=== PATIENT | female | born 1945 | race Caucasian/White ===

== ENCOUNTER 2016-11-16 15:55 | Emergency (ER) | payer OTHER ==
[2016-11-16 16:11] VITALS: BP 144/91
[2016-11-16] MEDS ORDERED: Lidocaine 2% PF * 5 ML VIAL ONE (16:21)
--- NOTE | 2016-11-17 00:16 | UC ---
Elian Carlisle Erika, scribed for Jen Hernandez MD on 11/16/16 at 1622 . Laceration HPI - HPI Summary HPI Summary: Patient is a 71-year-old female presenting to [facility] with a CC of a laceration to the left index finger at around 15:15 today. Pt reports that she was slicing bread when her hand slipped, and she sliced her finger at an angle. Pt reports her drove her here today. She reports her tetanus vaccine is UTD. Pt takes propranolol for atrial flutter, and medication for hypothyroidism. PSHx melanoma removal in 1990. - History Of Current Complaint Chief Complaint: UCLaceration Stated Complaint: FINGER LACERACTION Time Seen by Provider: 11/16/16 16:15 Hx Obtained From: Patient Laceration Location: Finger - left index Mechanism Of Injury: Sharp Trauma Onset/Duration: Sudden Onset, Lasting Hours - about 1 hour, Still Present Severity: Moderate Pain Intensity: 0 Pain Scale Used: 0-10 Numeric Aggravating Factors: Nothing Related History: Dominant Hand Right - Allergies/Home Medications Allergies/Adverse Reactions: Allergies Allergy/AdvReac Type Severity Reaction Status Date / Time Sulfa Drugs Allergy Rash Verified 01/27/13 10:04 BANDAIDS Allergy Rash Uncoded 01/27/13 10:04 ENVIRONMENTAL Allergy SINUSES Uncoded 01/27/13 10:04 Home Medications: Home Medications Aspirin EC Low Dose* [Ecotrin EC Low Dose*] 1 tab PO DAILY 11/16/16 [History Confirmed 11/16/16] PMH/Surg Hx/FS Hx/Imm Hx Previously Healthy: No - melanoma Endocrine History Of: Reports: Thyroid Disease - HYPOTHYROID Cardiovascular History Of: Reports: Cardiac Disorders - "UNUSUAL FLUTTER" Cancer History Of: Denies: Breast Cancer - Surgical History Surgical History: Yes Surgery Procedure, Year, and Place: AGE 7 TONSILLECTOMY. 11/1990-[facility] REMOVED LEFT UPPER ARM. 12/1990 PARTIAL LYMPHECTOMY LEFT UPPER ARM. 2004- SURGICAL EXCISION OF BENIGN RIGHT BREAST LUMP - Family History Known Family History: Positive: Hypertension, Other - breast cancer Negative: Cardiac Disease - Social History Lives: With Family Alcohol Use: Occasionally Alcohol Amount: 1-2 glasses Substance Use Type: None Smoking Status (MU): Former Smoker Have You Smoked in the Last Year: No When Did the Patient Quit Smoking/Using Tobacco: 1975 Review of Systems Constitutional: Negative Skin: Other - Laceration to the left index finger Neurological: Negative Psychological: Negative All Other Systems Reviewed And Are Negative: Yes Physical Exam Triage Information Reviewed: Yes Appearance: Well-Appearing, Well-Nourished, Pain Distress - mild Vital Signs: Initial Vital Signs Temp 98.7 F 11/16/16 16:06 Pulse 90 11/16/16 16:06 Resp 16 11/16/16 16:06 BP 144/91 11/16/16 16:06 Pulse Ox 99 11/16/16 16:06 Vital Signs Reviewed: Yes Eyes: Positive: Conjunctiva Clear ENT: Positive: Normal ENT inspection Neck: Positive: Supple Respiratory: Positive: No respiratory distress Cardiovascular: Positive: RRR, Pulses Normal, Brisk Capillary Refill Musculoskeletal: Positive: Strength Intact, ROM Intact Neurological: Positive: Alert, Muscle Tone Normal Psychological Exam: Normal Skin Exam: Other - 2 cm flap laceration to the medial aspect of the DIP of the left index finger, oozing Laceration Repair - Laceration Repair 1 Description: Irregular - flap laceration Laceration Size After Repair: Length (cm) - 2, Width (mm) - 1, Depth (mm) - 1 Modified For Repair: No Type Injection: Digital Anesthesia Used: 2.0% Lido Irrigation With Pressure Irrigation Device: Yes Closure Material: Sutures - 4 Closure Method: Single Layer Suture Of: Skin Suture Type: Nylon - 4.0 Laceration Course/Dx - Differential Dx - Laceration/Wound Differental Diagnoses: Avulsion, Laceration Provider Diagnoses: 1. Finger laceration Discharge - Discharge Plan Condition: Stable Disposition: HOME Patient Education Materials: Finger Laceration (ED), Care For Your Stitches (ED ) Referrals: Vinnie Schafer MD [Primary Care Provider] - Additional Instructions: Please keep your stitches dry and watch for infection. Suture removal in 7-10 days. RETURN TO URGENT CARE FOR ANY NEW OR WORSENING SYMPTOMS. The documentation as recorded by the Elian caballero Erika accurately reflects the service I personally performed and the decisions made by , Jen Hernandez MD.
== END 2016-11-16 17:04 | disposition home or self-care (01) ==
LOC: UCEAST 15:55
DX: S61.211A Laceration without foreign body of left index finger without damage to nail, initial encounter (principal); W26.0XXA Contact with knife, initial encounter; Y93.G1 Activity, food preparation and clean up; Y92.9 Unspecified place or not applicable; I48.92 Unspecified atrial flutter; E03.9 Hypothyroidism, unspecified; Z88.2 Allergy status to sulfonamides; Z87.891 Personal history of nicotine dependence
CPT/HCPCS: 12001; 99211; G0463

== ENCOUNTER 2016-11-25 09:35 | Emergency (ER) | payer OTHER ==
[2016-11-25 11:11] VITALS: BP 106/64
[2016-11-25] MEDS ORDERED: Benzoin Compound STICK ONE (11:35)
--- NOTE | 2016-11-25 11:39 | UC ---
HPI Wound/Suture Re-check - HPI Summary HPI Summary: here for suture removal left index finger - History Of Current Complaint Chief Complaint: UCWounds Stated Complaint: SUTURE REMOVAL Time Seen by Provider: 11/25/16 11:21 Hx Obtained From: Patient Onset/Duration: Sudden Onset, Lasting Days - 10, Resolved - healing well with no c/o Pain Intensity: 1 - Allergies/Home Medications Allergies/Adverse Reactions: Allergies Allergy/AdvReac Type Severity Reaction Status Date / Time Sulfa Drugs Allergy Rash Verified 11/25/16 11:11 BANDAIDS Allergy Rash Uncoded 11/25/16 11:11 ENVIRONMENTAL Allergy SINUSES Uncoded 11/25/16 11:11 PMH/Surg Hx/FS Hx/Imm Hx Previously Healthy: No Endocrine History Of: Reports: Thyroid Disease - HYPOTHYROID Cardiovascular History Of: Reports: Cardiac Disorders - "UNUSUAL FLUTTER" Cancer History Of: Denies: Breast Cancer - Surgical History Surgical History: Yes Surgery Procedure, Year, and Place: AGE 7 TONSILLECTOMY. 11/1990-[facility] REMOVED LEFT UPPER ARM. 12/1990 PARTIAL LYMPHECTOMY LEFT UPPER ARM. 2004- SURGICAL EXCISION OF BENIGN RIGHT BREAST LUMP - Family History Known Family History: Positive: Hypertension, Other - breast cancer Negative: Cardiac Disease - Social History Occupation: Retired Lives: With Family Alcohol Use: Occasionally Alcohol Amount: 1-2 glasses Substance Use Type: None Smoking Status (MU): Former Smoker Have You Smoked in the Last Year: No When Did the Patient Quit Smoking/Using Tobacco: 1975 - Immunization History Most Recent Influenza Vaccination: 07/2016 Most Recent Tetanus Shot: 2011 Review of Systems Constitutional: Negative Skin: Negative Eyes: Negative ENT: Negative Respiratory: Negative Cardiovascular: Negative Gastrointestinal: Negative Genitourinary: Negative Motor: Negative Neurovascular: Negative Musculoskeletal: Negative Neurological: Negative Psychological: Negative All Other Systems Reviewed And Are Negative: Yes Physical Exam Triage Information Reviewed: Yes Appearance: Well-Appearing, No Pain Distress, Well-Nourished Vital Signs: Initial Vital Signs Temp 98.4 F 11/25/16 11:05 Pulse 75 11/25/16 11:05 Resp 16 11/25/16 11:05 BP 106/64 11/25/16 11:05 Pulse Ox 98 11/25/16 11:05 Vital Signs Reviewed: Yes Eye Exam: Normal Eyes: Positive: Conjunctiva Clear ENT Exam: Normal ENT: Positive: Normal ENT inspection, Hearing grossly normal, Pharynx normal. Negative: Nasal congestion, Nasal drainage, Trismus, Muffled/hoarse voice Neck exam: Normal Neck: Positive: Supple, Nontender, No Lymphadenopathy Respiratory Exam: Normal Respiratory: Positive: Chest non-tender, No respiratory distress, No accessory muscle use Cardiovascular Exam: Normal Cardiovascular: Positive: RRR, Pulses Normal, Brisk Capillary Refill Musculoskeletal Exam: Normal Musculoskeletal: Positive: Strength Intact, ROM Intact, No Edema Neurological Exam: Normal Neurological: Positive: Alert, Muscle Tone Normal Psychological Exam: Normal Skin: Positive: significant lesion(s) - healing laceration left index finger well approximated sutures intact Re-Evaluation - Re-Evaluation First Eval Change: Improved - Sutures removed patient tolerates well, steri strips applied Course/Dx - Course Course Of Treatment: steri strip, routine hygiene follow with PCP re-check prn - Differential Dx - Laceration/Wound Differential Diagnoses: Cellulitis, Healing Wound, Suture Removal Provider Diagnoses: Healing wound suture removal left index finger Discharge - Discharge Plan Condition: Stable Disposition: HOME Patient Education Materials: Stitches Removal (ED) Referrals: Vinnie Schafer MD [Primary Care Provider] - If Needed
== END 2016-11-25 11:44 | disposition home or self-care (01) ==
LOC: UCEAST 09:35
DX: Z48.02 Encounter for removal of sutures (principal); Z88.2 Allergy status to sulfonamides; Z87.891 Personal history of nicotine dependence
CPT/HCPCS: 99211; G0463

== ENCOUNTER 2017-10-15 06:58 | Day surgery (SDC) | payer OTHER ==
[~2017-10-15 06:58] MED LIST: Acetaminophen TAB* 325 MG PO PRN; Buffered Lidocaine 0.9% SYRIN* 5 ML/SYR SYRINGE INTRADERM ONE
[2017-10-15] MEDS ORDERED: Midazolam* 1 MG/ML 2 ML VIAL (2 MG) ONE ×2 (07:04→09:01)
[2017-10-15 09:42] VITALS: BP 132/76
--- NOTE | 2017-10-15 09:56 | OP ---
OPERATIVE NOTE: DATE OF OPERATION: 10/15/17 DATE OF : 49 SURGEON: Mikhail Harris M.D. PREOPERATIVE DIAGNOSIS: Cataract, right eye. POSTOPERATIVE DIAGNOSIS: Cataract, right eye. OPERATIVE PROCEDURE: Extracapsular cataract extraction with intraocular lens implant and CTR right e ye. PROCEDURE: The patient was brought to the operating room after being given 1/2% Alcaine with epineph rine drops in the preoperative area. The eye was prepped and draped in the usual sterile fashion. S terile drape and eyelid speculum were placed. Again, topical 1/2% Alcaine with epinephrine was given . A paracentesis incision was made at the 9 o'clock position with the No.75 blade. Clear cornea inc ision 2.2 x 2.2-mm was created at the 12 o'clock position starting at the anterior limbus using the 2 .2-mm keratome. The anterior chamber was irrigated with 0.4 mL of 1% non-preservative intracameral l idocaine and filled with DisCoVisc. A capsulorrhexis was completed using the cystotome and the Utrat a forceps. Hydrodissection was performed with balanced salt solution. The lens nucleus was removed w ith the Phacoemulsification handpiece without incident. Cortex was removed with the irrigation-aspir ation handpiece. The capsular bag was re-inflated using DisCoVisc and an [id number] implant was inser scott with the shooter followed by capsular tension ring ACTR 11 inserted with its shooter. Of note, t he pupil was only 4 mm and Malyugin ring was used to dilate the pupil and removed after insertion of the lens. Indication for complex cataract surgery, pseudoexfoliation requiring capsular tension ring . The irrigation-aspiration handpiece was used to remove all residual DisCoVisc. The eye was refill ed with balanced salt solution and the wound checked and found to be watertight. Topical Maxitrol dr ops were given. [id number]/[facility] #: [id number]
== END 2017-10-15 09:32 | disposition home or self-care (01) ==
LOC: OREAST 06:58
PROVIDERS: ATTEND Specialist
DX: H25.811 Combined forms of age-related cataract, right eye (principal); H40.1414 Capsular glaucoma with pseudoexfoliation of lens, right eye, indeterminate stage; H43.813 Vitreous degeneration, bilateral; E03.9 Hypothyroidism, unspecified; Z85.820 Personal history of malignant melanoma of skin; I47.1 Supraventricular tachycardia; R94.31 Abnormal electrocardiogram [ECG] [EKG]; F17.201 Nicotine dependence, unspecified, in remission
CPT/HCPCS: J2250; V2632